=== PATIENT | male | born 2000 | race Caucasian/White ===

== ENCOUNTER 2020-08-10 17:05 | Emergency (ER) | payer BC ==
[~2020-08-10] VITALS: Ht 193 cm; Wt 81.6 kg
[2020-08-10] MEDS ORDERED: AMOXICILLIN500 MG PO (18:20)
== END 2020-08-10 18:27 | disposition home or self-care (01) ==
LOC: ED 17:05
DX: H66.91 Otitis media, unspecified, right ear (principal)
CPT/HCPCS: 99283